=== PATIENT | female | born 2000 | race Caucasian/White ===

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

== ENCOUNTER 2021-04-25 15:49 | Outpatient (CLI) | payer OTHER, SELFPAY | END 2021-04-25 23:59 | disposition short-term general hospital (02) | LOC: IMMUN 04-27 15:50 | PROVIDERS: PCP Pediatrics; Visit Provider Family Medicine | DX: Z23 Encounter for immunization (principal) ==

== ENCOUNTER 2021-11-23 20:23 | Emergency (ER) | payer OTHER, SELFPAY ==
[2021-11-23 20:26] VITALS: BP 112/80; PULSE 105; RESP 18; TEMP 37; O2SAT 98; BMI 17.6
[2021-11-23] MEDS: Rabies Vaccine,Human Diploid 2.5 UNITS Vial IM (21:03)
[2021-11-23] MEDS: Rabies Immune Globulin 150 U/ML 2ml Vial 310 U IM (21:10)
[2021-11-23] MEDS: Rabies Immune Globulin/PF 300 UNIT/ML, 1 ML VIAL 600 UNIT IM (21:15)
--- NOTE | 2021-11-23 21:20 | EX.ED.GENINJ ---
HPI History of Present Illness Chief Complaint: Bite Informant: patient Narrative Narrative: Patient presents for concerns for rabies exposure. She lives in the [place] awakened at 3 AM with something in her arm she notices a bat. Denies any pain in her arm. Today was carrying books throughout the day and having some aches of her attribute it to this. Her immunizations are up-to-date. Spoke with school nursing who referred her to the ED. She reports security was contacted caught the bat however they let the bat go outside. She denies any past medical history. Prior similar symptoms: No PFSH PFSH Allergy/AdvReac Type Severity Reaction Status Date / Time No Known Allergies Allergy Verified 11/23/21 21:01 Social History Smoking Status: Smoker, status unknown ROS ROS ED Constitutional Constitutional ED: Denies chills, fever(s) or sweats Eyes Eyes: Denies change in vision ENT ENT ED: Denies dysphagia or sore throat Cardiovascular Cardiovascular: Denies chest pain, leg edema, palpitations or racing heartbeat Respiratory/Chest Respiratory/Chest: Denies cough, dyspnea or dyspnea on exertion Gastrointestinal Gastrointestinal: Denies abdominal pain, diarrhea, nausea or vomiting Genitourinary Genitourinary ED: Denies dysuria, hematuria or urinary frequency Musculoskeletal Musculoskeletal: Denies back pain, extremity pain or neck pain Integumentary Denies rash or wounds Neurologic Neurologic: Denies headache(s), paresthesias or weakness EXAM Physical Exam Const Vital Signs: 11/23/21 20:26 11/23/21 21:01 Temperature 98.6 F Temperature Source Temporal Pulse Rate 105 H Respiratory Rate 18 Respiratory Pattern Normal Blood Pressure 112/80 Blood Pressure Mean 90 Pulse Ox 98 Oxygen Delivery Method Room Air Positive well nourished and well developed General Appearance ED: well developed and NAD HEENT Reports moist mucous membranes normocephalic and atraumatic Eyes PERRL, EOMs intact bilaterally and conjunctivae normal General Eye ED: Yes normal appearance of both eyes Neck no lymphadenopathy and supple General: Negative for tenderness Chest Wall Chest: Negative for tenderness Resp normal respiratory effort and normal air movement Effort and Inspection: symmetric chest movement; Negative for respiratory distress Cardio regular rate, regular rhythm and no murmurs Peripheral Pulses: pulses 2+ throughout GI normal to inspection, nondistended, normoactive bowel sounds and non-tender Palpation: Negative for guarding or rebound tenderness present Back/Spine no CVA tenderness and no thoracic nor lumbar tenderness Extremity normal to inspection General Extremety ED: Negative for edema or tenderness General Extremity: Negative for edema Neuro oriented x3 and no sensory deficits noted Sensorium / Orientation: awake and alert Skin no rashes or lesions noted and no wounds Skin Narrative: No punctures noted on her arms. MDM MDM MDM Narrative Medical decision making narrative: Patient waking with bat in the room. Recommendation is for immunoglobulins and vaccine series. First dose given in the ED. She return at day 3, 7, and 14 for continued series. Discharge Plan Triage Chief Complaint: Bite ED Provider: Rayshawn Toscano Dx/Rx/DC Orders Clinical Impression: Exposure to bat without known bite, Rabies, need for prophylactic vaccination against Instructions: Understanding Rabies Primary Care Provider: Aj Gonzales Referrals: Aj Gonzales MD [Primary Care Provider] - 3-5 Days Activity Restrictions/Additional Instructions: Return at day 3, 7, 14 for continued vaccine series. Disposition Disposition: Home, Self Care Discharge Date/Time: 11/23/21 21:48
== END 2021-11-23 21:48 | disposition home or self-care (01) ==
PROVIDERS: Emergency Provider Emergency Medicine; PCP Pediatrics; Visit Provider Emergency Medicine
DX: Z20.3 Contact with and (suspected) exposure to rabies (principal); F17.200 Nicotine dependence, unspecified, uncomplicated
CPT/HCPCS: 90375; 90675; 99281

== ENCOUNTER → 2021-11-26 | Outpatient (CLI) | payer SELFPAY ==
[2021-11-26 11:13] VITALS: BP 112/86; PULSE 86; RESP 18; TEMP 36.3; O2SAT 100; BMI 19.5
[2021-11-26] MEDS: Rabies Vaccine,Human Diploid 2.5 UNITS Vial IM (12:10)
== END | disposition home or self-care (01) ==
PROVIDERS: Emergency Provider Emergency Medicine; PCP Pediatrics; Visit Provider Emergency Medicine
DX: Z23 Encounter for immunization (principal)
CPT/HCPCS: 90675

== ENCOUNTER 2021-11-30 16:49 | Outpatient (CLI) | payer SELFPAY ==
[2021-11-30 16:51] VITALS: BP 107/69; PULSE 110; RESP 14; TEMP 35.6; O2SAT 98; BMI 18.7
[2021-11-30 16:52] VITALS: TEMP 35.6; BMI 18.7
[2021-11-30] MEDS: Rabies Vaccine,Human Diploid 2.5 UNITS Vial IM (17:32)
== END 2021-11-30 18:07 | disposition home or self-care (01) ==
PROVIDERS: PCP Pediatrics; Visit Provider Emergency Medicine
DX: Z23 Encounter for immunization (principal)
CPT/HCPCS: 90675

== ENCOUNTER → 2021-12-07 | Outpatient (CLI) | payer SELFPAY ==
[2021-12-07 17:43] VITALS: BP 111/78; PULSE 96; RESP 16; TEMP 37; O2SAT 100; BMI 19.1
[2021-12-07] MEDS: Rabies Vaccine,Human Diploid 2.5 UNITS Vial IM (18:23)
== END | disposition home or self-care (01) ==
PROVIDERS: PCP Pediatrics
DX: Z23 Encounter for immunization (principal)
CPT/HCPCS: 90675